=== PATIENT | female | born 1995 | race Caucasian/White ===

== ENCOUNTER 2017-11-27 00:51 | Emergency (ER) | payer OTHER ==
[2017-11-27] MEDS ORDERED: NS 1,000 ML IV ONE (01:02)
[2017-11-27] MEDS ORDERED: ONDANSETRON 4 MG/2 ML VIAL IVP ONE (01:07)
[2017-11-27 01:09] LABS: PLATELET COUNT 287 10^3/uL (150-400)
[2017-11-27] MEDS: HYDROmorphONE/DILAUDID 2 MG/ML INJ IVP ONE ×2 (01:09→01:38)
--- NOTE | 2017-11-27 01:09 | EDPHY ---
H & P Stated Complaint: Lower abd pain, cramping Time Seen by Provider: 11/27/17 01:01 HPI/ROS: HPI CHIEF COMPLAINT: Sudden-onset left low pelvic pain. HISTORY OF PRESENT ILLNESS: Patient is a 22-year-old female, she is otherwise healthy with no significant medical history she presents emergency room with sudden onset left adnexal pelvic pain. This started suddenly at 5:00 a.m. Ago. She states she was resting comfortably and sudden-onset got sharp stabbing left adnexal pain. It is now radiated across her low pelvis to her right side. It is worse with movements and it is worse sitting up. She denies any vaginal discharge or vaginal bleeding. She states she is due for her menstrual cycle starting today. She denies urinary symptoms or significant back pain, denies vomiting or diarrhea. Denies recent illness. Current level pain 01/28. Past Medical History: No significant medical history Past Surgical History: No significant surgical Social History: denies drugs alcohol tobacco. [employer] student Family History: Noncontributory ROS REVIEW OF SYSTEMS: A comprehensive 10 point review of systems is otherwise negative aside from elements mentioned in the history of present illness. Exam Constitutional appears well nontoxic no acute distress triage nursing summary reviewed, vital signs reviewed, awake/alert. Noted be tachycardic at triage Eyes normal conjunctivae and sclera, EOMI, PERRLA. HENT normal inspection, atraumatic, moist mucus membranes, no epistaxis, neck supple/ no meningismus, no raccoon eyes. Respiratory clear to auscultation bilaterally, normal breath sounds, no respiratory distress, no wheezing. Cardiovascular tachycardia, regular rhythm, no murmur, no edema, distal pulses normal. Gastrointestinal mild tender palpation left adnexa, suprapubic and right adnexa. No upper abdominal pain, no peritoneal signs, no rebound, no guarding, normal bowel sounds, no distension, no pulsatile mass. Genitourinary no CVA tenderness. Musculoskeletal no midline vertebral tenderness, full range of motion, no calf swelling, no tenderness of extremities, no meningismus, good pulses, neurovascularly intact. Skin pink, warm, & dry, no rash, skin atraumatic. Neurologic awake, alert and oriented x 3, AAOx3, moves all 4 extremities equally, motor intact, sensory intact, CN II-XII intact, normal cerebellar, normal vision, normal speech. Psychiatric normal mood/affect. Heme/Lymph/Immune no lymphadenopathy. Differential diagnosis includes but is not limited to and in no particular order : Ruptured ovarian cyst, ovarian torsion, Bowel obstruction, appendicitis, gallbladder disease, diverticulitis, colitis, enteritis, perforated viscus, gastritis, GERD, esophagitis, urinary tract infection, pyelonephritis, kidney stones Medical Decision Making: Plan for this patient IV establishment IV fluid bolus , 0.5 mg IV Dilaudid for pain control, IV Zofran for 4 mg for nausea, basic blood work, UA, test, CBC, re-evaluate. Transvaginal ultrasound for rule out ruptured ovarian cyst versus ectopic versus torsion. Re-evaluation: Ultrasound has been reviewed. Normal ovaries. Trace free fluid. Nothing explained severe lower abdominal pain. Called to me by Dr. James. 0150: Given her abdominal pain will proceed with CT scan abdomen pelvis with IV contrast. 0212: Patient re-evaluated this time she is feeling much better after IV Dilaudid 1 mg IV Toradol. Blood work has been reviewed as well as urinalysis. Ultrasound did not show ovarian cyst or significant amount of free fluid there is trace. Given her abdominal pain will proceed with CT scan abdomen pelvis with IV contrast. I updated the patient on this plan she is fine with this plan. 0236: Patient re-evaluated resting comfortably. At abdominal pain has resolved. CT scan abdomen pelvis with IV contrast shows no evidence of free air free fluid. No inflammatory process. There is a rather large amount of stool burden in the rectosigmoid colon. This may be the cause of her abdominal pain. I updated patient on her blood work, CT and ultrasound results. She is comfortable this plan she would like to go home. I will prescribe her some Mag citrate. Encouraged to drink lots of fluids. Additionally return precautions discussed with her. She understands return emergency room if develops worsening abdominal pain fever or vomiting. At this time of discharge 2:40 a.m. Her abdomen is soft nontender she feels better. Of note patient received a prescription for Mag citrate. The ibuprofen and [place] prescription as been canceled. If she has worsening abdominal pain she should return emergency room she understands. Source: Patient - Personal History LMP (Females 10-55): 22-28 Days Ago Current Tetanus Diphtheria and Acellular Pertussis (TDAP): Yes - Medical/Surgical History Hx Asthma: No Hx Chronic Respiratory Disease: No Hx Diabetes: No Hx Cardiac Disease: No Hx Renal Disease: No Hx Cirrhosis: No Hx Alcoholism: No Hx HIV/AIDS: No Hx Splenectomy or Spleen Trauma: No Other PMH: stomach ulcer, ongoing tinnitus. ?RAD - Social History Smoking Status: Never smoked Constitutional: Initial Vital Signs Temperature (C) 36.3 C 11/27/17 00:54 Heart Rate 123 H 11/27/17 00:54 Respiratory Rate 20 11/27/17 00:54 Blood Pressure 150/105 H 11/27/17 00:54 O2 Sat (%) 95 11/27/17 00:54 O2 Delivery Mode Room Air Allergies/Adverse Reactions: latex Allergy (Verified 11/27/17 00:54) Home Medications: Medication Instructions Recorded Albuterol Inhaler Hfa 11/30/14 Hydrocodone/APAP 5/325 [[place] 1 - 2 tab PO Q4H PRN #10 tab 11/27/17 5/325] Ibuprofen [Motrin (*)] 800 mg PO Q6-8PRN #14 tab 11/27/17 Magnesium Citrate [Citrate of 300 ml PO BID #1 solution 11/27/17 Magnesia] Medical Decision Making - Data Points Laboratory Results: Laboratory Results 11/27/17 01:02 11/27/17 01:02 11/27/17 11/27/17 11/27/17 01:30 01:02 01:02 WBC RBC Hgb Hct MCV MCH MCHC RDW Plt Count MPV Neut % (Auto) Lymph % (Auto) [place] % (Auto) Eos % (Auto) Baso % (Auto) Nucleat RBC Rel Count Absolute Neuts (auto) Absolute Lymphs (auto) Absolute Monos (auto) Absolute Eos (auto) Absolute Basos (auto) Absolute Nucleated RBC Immature Gran % Immature Gran # Sodium 141 mEq/L mEq/L (135-145) Potassium 3.4 mEq/L L mEq/L (3.5-5.2) Chloride 106 mEq/L mEq/L (97-110) Carbon Dioxide 20 mEq/l L mEq/l (22-31) Anion Gap 15 mEq/L mEq/L (8-16) BUN 8 mg/dL mg/dL (7-23) Creatinine 0.7 mg/dL mg/dL (0.6-1.0) Estimated GFR > 60 Glucose 90 mg/dL mg/dL (70-100) Calcium 10.1 mg/dL mg/dL (8.5-10.4) Total Bilirubin 1.1 mg/dL mg/dL (0.1-1.4) Conjugated Bilirubin 0.2 mg/dL mg/dL (0.0-0.5) Unconjugated Bilirubin 0.9 mg/dL mg/dL (0.0-1.1) AST 18 IU/L IU/L (14-46) ALT 24 IU/L IU/L (9-52) Alkaline Phosphatase 49 IU/L IU/L (38-126) Total Protein 7.5 g/dL g/dL (6.3-8.2) Albumin 4.7 g/dL g/dL (3.5-5.0) Lipase 95 IU/L IU/L (23-300) Beta HCG, Qual NEGATIVE Urine Color PALE YELLOW Urine Appearance CLEAR Urine pH 6.0 (5.0-7.5) Ur Specific [place] 1.002 (1.002-1.030) Urine Protein NEGATIVE (NEGATIVE) Urine Ketones TRACE H (NEGATIVE) Urine Blood NEGATIVE (NEGATIVE) Urine Nitrate NEGATIVE (NEGATIVE) Urine Bilirubin NEGATIVE (NEGATIVE) Urine Urobilinogen NEGATIVE EU EU (0.2-1.0) Ur Leukocyte Esterase NEGATIVE (NEGATIVE) Urine Glucose NEGATIVE (NEGATIVE) 11/27/17 01:02 WBC 9.73 10^3/uL H 10^3/uL (3.80-9.50) RBC 4.92 10^6/uL 10^6/uL (4.18-5.33) Hgb 15.1 g/dL g/dL (12.6-16.3) Hct 44.1 % % (38.0-47.0) MCV 89.6 fL fL (81.5-99.8) MCH 30.7 pg pg (27.9-34.1) MCHC 34.2 g/dL g/dL (32.4-36.7) RDW 12.0 % % (11.5-15.2) Plt Count 287 10^3/uL 10^3/uL (150-400) MPV 9.5 fL fL (8.7-11.7) Neut % (Auto) 48.3 % % (39.3-74.2) Lymph % (Auto) 41.3 % % (15.0-45.0) [place] % (Auto) 7.8 % % (4.5-13.0) Eos % (Auto) 1.5 % % (0.6-7.6) Baso % (Auto) 0.8 % % (0.3-1.7) Nucleat RBC Rel Count 0.0 % % (0.0-0.2) Absolute Neuts (auto) 4.69 10^3/uL 10^3/uL (1.70-6.50) Absolute Lymphs (auto) 4.02 10^3/uL H 10^3/uL (1.00-3.00) Absolute Monos (auto) 0.76 10^3/uL 10^3/uL (0.30-0.80) Absolute Eos (auto) 0.15 10^3/uL 10^3/uL (0.03-0.40) Absolute Basos (auto) 0.08 10^3/uL 10^3/uL (0.02-0.10) Absolute Nucleated RBC 0.00 10^3/uL 10^3/uL (0-0.01) Immature Gran % 0.3 % % (0.0-1.1) Immature Gran # 0.03 10^3/uL 10^3/uL (0.00-0.10) Sodium Potassium Chloride Carbon Dioxide Anion Gap BUN Creatinine Estimated GFR Glucose Calcium Total Bilirubin Conjugated Bilirubin Unconjugated Bilirubin AST ALT Alkaline Phosphatase Total Protein Albumin Lipase Beta HCG, Qual Urine Color Urine Appearance Urine pH Ur Specific [place] Urine Protein Urine Ketones Urine Blood Urine Nitrate Urine Bilirubin Urine Urobilinogen Ur Leukocyte Esterase Urine Glucose Medications Given: Discontinued Medications Hydromorphone HCl (Dilaudid) 0.5 mg IVP EDNOW ONE Stop: 11/27/17 01:08 Last Admin: 11/27/17 01:38 Dose: 0.5 mg Hydromorphone HCl (Dilaudid) 0.5 mg IVP EDNOW ONE Stop: 11/27/17 01:31 Last Admin: 11/27/17 01:38 Dose: Not Given Sodium Chloride (Ns) 1,000 mls @ 0 mls/hr IV EDNOW ONE; Wide Open PRN Reason: Protocol Stop: 11/27/17 01:03 Last Admin: 11/27/17 01:07 Dose: 1,000 mls Ketorolac Tromethamine (Toradol) 15 mg IVP EDNOW ONE Stop: 11/27/17 01:35 Last Admin: 11/27/17 01:37 Dose: 15 mg Ondansetron HCl (Zofran) 4 mg IVP EDNOW ONE Stop: 11/27/17 01:08 Last Admin: 11/27/17 01:12 Dose: 4 mg Departure - Departure Disposition: Home, Routine, Self-Care Clinical Impression: Abdominal pain Qualifiers: Abdominal location: lower abdomen, unspecified Qualified Code(s): R10.30 - Lower abdominal pain, unspecified Condition: Good Instructions: Acute Abdominal Pain (ED), Constipation (ED) Additional Instructions: 1. Return emergency room if develops worsening abdominal pain fever vomiting. Referrals: Makayla Faith MD [Primary Care Provider] - As per Instructions Stand Alone Forms: School Excuse Prescriptions: Hydrocodone/APAP 5/325 [[place] 5/325] 1 - 2 tab PO Q4H PRN #10 tab PRN Reason: Pain, Moderate Ibuprofen [Motrin (*)] 800 mg PO Q6-8PRN #14 tab Magnesium Citrate [Citrate of Magnesia] 300 ml PO BID #1 solution
[2017-11-27] MEDS ORDERED: HYDROmorphONE/DILAUDID 1 MG/ML INJ IVP ONE (01:30)
[2017-11-27] MEDS ORDERED: KETOROLAC 15 MG/1 ML SDV IVP ONE (01:34)
[2017-11-27] MEDS ORDERED: IOPAMIDOL (ISOVUE-300) 100 ML BTL ONE (02:06)
[2017-11-27 02:54] VITALS: BP 131/74
== END 2017-11-27 02:54 | disposition home or self-care (01) ==
DX: R10.30 Lower abdominal pain, unspecified (principal); E86.9 Volume depletion, unspecified; Z91.040 Latex allergy status
CPT/HCPCS: 96374; J1170; J1885; J2405; Q9967